=== PATIENT | male | born 1960 | race Two or more races ===

== ENCOUNTER → 2018-04-26 | Day surgery (SDC) | payer OTHER ==
[~2018-04-26] MED LIST: FLUMAZENIL 0.1 MG/ML INJ 10ML MDV IV ONE; LISI10TA6 PO; NALOXONE HCL 0.4 MG/ML VIAL ONE; SODIUM CHLORIDE LOCK 10 ML ONE; diphenhdrAMINE HCL 50 MG/1 ML VL ONE
[2018-04-26 07:46] LABS: Basophils # (auto) 0 uL; Basophils % (auto) 0.6 % (0.0-2.0); Eosinophils # (auto) 0.1 uL; Eosinophils % (auto) 1.3 % (0.0-7.0); Hematocrit 43.5 % (41.0-53.0); Hemoglobin 14.3 g/dL (13.5-17.5); Lymphocytes % (auto) 19.7 % (10.0-50.0); Mean Corpuscular Hemoglobin 28.3 pg (28.0-32.0); Mean Corpuscular Hgb Conc. 32.9 g/dL (32.0-36.0); Mean Corpuscular Volume 85.9 fL (80.0-100.0); Monocytes # (auto) 0.4 uL; Monocytes % (auto) 7.9 % (0.0-12.0); Neutrophils # (auto) 3.7 uL; Neutrophils % (auto) 70.5 % (37.0-80.0); Nucleated Red Blood Cells % 0.1 %; Platelet Count (auto) 265 10^3/uL (140-450); Red Blood Cells 5.06 10^6/uL (4.5-5.90); Red Cell Distribution Width 12.7 % (11.8-14.3); White Blood Cell 5.3 10^3/uL (4.4-10.8)
[2018-04-26 08:05] LABS: INR 1.07 (0.9-1.15); Partial Thromboplastin Time 27.1 sec (23.78-33.04); Prothrombin Time 11.4 sec (9.27-12.13)
[2018-04-26] MEDS: fentaNYL CITRATE 100 MCG/2 ML VL ONE ×2 (09:14→09:17)
[2018-04-26] MEDS: MIDAZOLAM HCL 5 MG/ML-1ML VIAL ONE ×3 (09:14→09:21)
[2018-04-26 10:01] VITALS: BP 110/72
== END | disposition home or self-care (01) ==
LOC: GI 06:20
PROVIDERS: ATTEND Internal Medicine Gastroenterology
DX: K64.8 Other hemorrhoids (principal); K63.3 Ulcer of intestine; Z91.013 Allergy to seafood; Z82.49 Family history of ischemic heart disease and other diseases of the circulatory system; Z83.3 Family history of diabetes mellitus
CPT/HCPCS: 36415; 45380; 85025; 85610; 85730; 88305; 88342; J1200; J2250; J3010; J7030; 99152

== ENCOUNTER 2018-04-28 06:25 | Inpatient (IN) | payer OTHER ==
[~2018-04-28] VITALS: Ht 182.9 cm; Wt 94.7 kg
[2018-04-28] MEDS ORDERED: MIDAZOLAM HCL 1MG/1ML-2 ML VIAL ONE (10:35)
[2018-04-28] MEDS ORDERED: ONDANSETRON HCL 4 MG/2 ML VIAL ONE (10:35)
[2018-04-28] MEDS ORDERED: SODIUM CHLORIDE LOCK 10 ML ONE (10:35)
[2018-04-28] MEDS ORDERED: fentaNYL CITRATE 100 MCG/2 ML VL ONE (10:35)
[2018-04-28] MEDS ORDERED: PROPOFOL 10 MG/ML 20 ML IV ONE (10:35)
[2018-04-28] MEDS ORDERED: LIDOCAINE 1% HCL (LOCAL ANESTH.) INJ 20ML MDV ONE (11:02)
[2018-04-28] MEDS ORDERED: BUPIVACAINE W/ EPINEPH 0.25% INJ 50ML MDV ONE (11:02)
[2018-04-28] MEDS ORDERED: LIDOCAINE HCL 2% TOP JELLY 5ML TOP ONE (11:07)
[2018-04-28] MEDS ORDERED: METOCLOPRAMIDE HCL 5MG/ml INJ 2ml VIAL IV ONE (11:15)
[2018-04-28] MEDS ORDERED: KETOROLAC TROMETH 30 MG/ML 1ML VIAL IV ONE (11:15)
[2018-04-28] MEDS ORDERED: SUCCINYLCHOLINE CHLORIDE 20 MG/ML 10ML VIAL IV ONE (11:29)
[2018-04-28] MEDS ORDERED: ROCURONIUM 10MG/ML 10ML VIAL IV ONE (11:29)
[2018-04-28] MEDS ORDERED: NEOSTIGMINE 1 MG/ML INJ (10mg/10ML VIAL) ONE (12:21)
[2018-04-28] MEDS ORDERED: KETOROLAC TROMETH 60MG/2ML VIAL IM ONE (12:21)
[2018-04-28] MEDS ORDERED: GLYCOPYRROLATE 0.2 MG/ML 1ML VIAL ONE (12:21)
[2018-04-28] MEDS ORDERED: FLUTICASONE PROP NASAL SPR 0.05 % (50MCG) 16GM EACHNOSTRI ONE (13:30)
[2018-04-28] MEDS: FLUTICASONE PROP NASAL SPR 0.05 % (50MCG) 16GM EACHNOSTRI SCH ×2 (13:40→17:52)
[2018-04-28] MEDS: HYDROmorphone HCL 2 MG/ML VL IV PRN ×6 (14:25→21:50)
[2018-04-28] MEDS ORDERED: NITROGLYCERIN 0.4 MG SL TAB SL PRN (15:15)
[2018-04-28] MEDS ORDERED: MORPHINE SULFATE 10 MG/ML INJ 1ML SDV IV PRN (15:15)
[2018-04-28] MEDS ORDERED: ZOLPIDEM TARTRATE 5 MG TAB PO PRN (15:15)
--- NOTE | 2018-04-28 15:50 | NUR ---
Med-Surg admit from [facility] admitted to Med-Surg unit after SBAR received, s/p hernia repair. Patient oriented to MILAGRO Yap RN, unit, room, bed, and unit policies regarding patient care and visiting hours. Patient placed on bedside oxygen, weighed by bed scale and encouraged to call if they need something. All questions and concerns addressed, patient verbalized understanding.
[2018-04-28 17:47] VITALS: BP 125/74
[2018-04-28] MEDS: ceFAZolin 1GM/50ML 50 ML IV SCH ×2 (17:52→21:50)
--- NOTE | 2018-04-28 19:00 | NUR ---
Closing Note Patient is resting in bed, not in distress. Call light within reach and bed in lowest position. Guard at bedside. Care endorsed to night RN.
--- NOTE | 2018-04-28 19:30 | NUR ---
RECEIVED PT FROM DAY RN POC REVIEWED
--- NOTE | 2018-04-28 20:15 | NUR ---
50ML OF SEROUS SECRETIONS OUT OF VÍCTOR DRAIN
[2018-04-28] MEDS: ONDANSETRON HCL 4 MG/2 ML VIAL IV PRN (21:51)
[2018-04-28 22:00] VITALS: BP 138/82
--- NOTE | 2018-04-28 23:37 | NUR ---
40ML OF SEROUS SECRETION OUT OF VÍCTOR
[2018-04-29] MEDS: ONDANSETRON HCL 4 MG/2 ML VIAL IV PRN (00:21)
[2018-04-29] MEDS: HYDROmorphone HCL 2 MG/ML VL IV PRN ×4 (00:22→13:27)
--- NOTE | 2018-04-29 00:32 | NUR ---
25 ML SEROUS SECRETIONS OUT OF VÍCTOR DRAIN
[2018-04-29 05:00] VITALS: BP 120/73
[2018-04-29] MEDS: ceFAZolin 1GM/50ML 50 ML IV SCH ×3 (05:29→21:33)
--- NOTE | 2018-04-29 07:20 | NUR ---
Opening Shift Note Assumed care of patient, awake and alert. No S/S of distress/SOB. Patient reported abdominal pain on the surgical site particularly when moving. Instructed on POC-continue IV antibiotic, do incentive spirometry at least 10 times every hours when awake, pain management and to ambulate. Patient informed to call for assist PRN, will continue to monitor for changes Q1hr and PRN. Guards at bedside.
[2018-04-29] MEDS ORDERED: INFLUENZA QUAD 2018-2019 0.5 ML SYRG IM ONE (07:30)
--- NOTE | 2018-04-29 07:32 | NUR ---
AWOKE PT HAS HYPO BS, PAIN RELIEVED WITH MED GIVEN, NO NEW DRAINAGE OON DRESSING, VÍCTOR OUT AT THIS TIME 20 ML SEROUS SECRETIONS, IS AT BEDSIDE, REMINDED PT TO AMBULATE, REMINDED PT TO SPLINT ABDOMEN WHEN COUGHING, ALL QUESTIONS AND CONCERNS ADDRESSED, RESP EVEN AND UNLABORED ON 2L HUMIDIFIED O2 REPORT OFF TO AM NURSE
[2018-04-29] MEDS ORDERED: LISI10TA6 PO (08:20)
[2018-04-29 09:00] VITALS: BP 111/64
[2018-04-29] MEDS: LISINOPRIL 10 MG TAB PO SCH (09:43)
[2018-04-29] MEDS: ASPirin 81 mg TAB PO SCH (09:43)
[2018-04-29] MEDS: FLUTICASONE PROP NASAL SPR 0.05 % (50MCG) 16GM EACHNOSTRI SCH (09:44)
[2018-04-29 13:00] VITALS: BP 131/74
[2018-04-29 14:19] LABS: Basophils # (auto) 0 uL; Basophils % (auto) 0.3 % (0.0-2.0); Eosinophils # (auto) 0.1 uL; Eosinophils % (auto) 1.5 % (0.0-7.0); Hematocrit 38.5 % (41.0-53.0); Hemoglobin 12.7 g/dL (13.5-17.5); Lymphocytes # (auto) 1.4 uL; Lymphocytes % (auto) 19.3 % (10.0-50.0); Mean Corpuscular Hemoglobin 28.5 pg (28.0-32.0); Mean Corpuscular Volume 86.2 fL (80.0-100.0); Monocytes # (auto) 0.8 uL; Monocytes % (auto) 10.3 % (0.0-12.0); Neutrophils % (auto) 68.6 % (37.0-80.0); Platelet Count (auto) 217 10^3/uL (140-450); Red Blood Cells 4.46 10^6/uL (4.5-5.90); Red Cell Distribution Width 13.1 % (11.8-14.3); White Blood Cell 7.3 10^3/uL (4.4-10.8)
[2018-04-29 14:40] LABS: Albumin 3.3 g/dL (3.4-5.0); Calcium 8.1 mg/dL (8.5-10.1); Potassium 3.8 mmol/L (3.5-5.1)
[2018-04-29 14:43] LABS: BUN/Creatinine Ratio 8.3; Bilirubin, Total 0.9 mg/dL (0.2-1.0); Total Protein 6.4 g/dL (6.4-8.2)
--- NOTE | 2018-04-29 15:36 | NUR ---
Page Dr. Crocker to inform of abdomen X-ray result. Spoke with staff Vidhya, who said that I should fax the result. Faxed result to Dr. Crocker office fax # [phone]. Awaiting call back. Continue to monitor patient. Abdomen is soft, positive bowel sounds and tolerating liquids.
[2018-04-29] MEDS: HYDROcodone-ACET 10/325MG TAB PO PRN ×2 (16:03→20:17)
[2018-04-29 17:41] VITALS: BP 128/85
--- NOTE | 2018-04-29 19:45 | NUR ---
Opening Shift Note Assumed care of patient, awake and alert. No S/S of distress/SOB but c/o abdominal pain 01/27. Ab binder on patient with VÍCTOR drain. IS at bedside. Bed locked in lowest position, side rails upx2, call light within reach. Guards at bedside. Instructed on POC and to call for assist PRN, will continue to monitor for changes Q1hr and PRN.
[2018-04-29 21:37] VITALS: BP 116/75
[2018-04-30] MEDS: HYDROcodone-ACET 10/325MG TAB PO PRN ×6 (00:24→23:24)
[2018-04-30 05:06] VITALS: BP 116/74
[2018-04-30] MEDS: ceFAZolin 1GM/50ML 50 ML IV SCH (05:50)
--- NOTE | 2018-04-30 06:52 | NUR ---
40ml total output from shift of serosanguinous drainage from VÍCTOR drain.
--- NOTE | 2018-04-30 07:25 | NUR ---
Opening Shift Note Assumed care of patient, awake and alert. No S/S of distress/SOB. Patient reported mild abdominal pain on the surgical site. Instructed on POC-continue to use incentive spirometer at least 10x/hour when awake, turn to sides at least every 2 hours and ambulate at least every 4 hours, pain management and continue medications as ordered. Patient informed to call for assist PRN, will continue to monitor for changes Q1hr and PRN. Guard at bedside.
[2018-04-30 09:00] VITALS: BP 126/68
[2018-04-30] MEDS: ASPirin 81 mg TAB PO SCH (10:02)
[2018-04-30] MEDS: LISINOPRIL 10 MG TAB PO SCH (10:02)
[2018-04-30] MEDS: ENOXAPARIN SOD 40 MG/0.4 ML SYRINGE SC SCH (10:03)
[2018-04-30] MEDS: FLUTICASONE PROP NASAL SPR 0.05 % (50MCG) 16GM EACHNOSTRI SCH (10:03)
[2018-04-30 13:00] VITALS: BP 106/65
[2018-04-30 17:44] VITALS: BP 104/62
--- NOTE | 2018-04-30 19:00 | NUR ---
Closing Note Patient is resting in bed, pain medication has just been administered as requested by patient. Abdominal dressing is clean, dry and intact with VÍCTOR drain, drainage over the shift was about 30 mls. Abdominal binder on the patient. Guards at bedside.
--- NOTE | 2018-04-30 19:45 | NUR ---
assumed care, pt. awake, no c/o pain, dressing on abdomen dry and intact, no sob.
[2018-04-30 22:00] VITALS: BP 122/66
[2018-05-01] MEDS: HYDROcodone-ACET 10/325MG TAB PO PRN ×4 (04:33→20:05)
[2018-05-01 05:43] VITALS: BP 122/75
--- NOTE | 2018-05-01 06:39 | NUR ---
v/s table, no c/o pain at this time, not in distress.
--- NOTE | 2018-05-01 07:40 | NUR ---
OPENING NOTE Assumed care of patient from NOC RNDahiana. Patient awake and alert with no S/S of distress/SOB or pain. Abdominal binder in place. Guard at bedside, right wrist and bilateral ankles cuffed to bed. Instructed on POC and to call for assist PRN, verbalized understanding. Bed in lowest, locked position with side rails up x 2 and call light within reach. Will continue to monitor for changes Q1hr and PRN.
[2018-05-01 09:00] VITALS: BP 128/76
[2018-05-01] MEDS: LISINOPRIL 10 MG TAB PO SCH (09:03)
[2018-05-01] MEDS: ENOXAPARIN SOD 40 MG/0.4 ML SYRINGE SC SCH (09:03)
[2018-05-01] MEDS: FLUTICASONE PROP NASAL SPR 0.05 % (50MCG) 16GM EACHNOSTRI SCH (09:03)
[2018-05-01] MEDS: ASPirin 81 mg TAB PO SCH (09:03)
[2018-05-01 13:00] VITALS: BP 110/69
[2018-05-01 17:00] VITALS: BP 124/75
--- NOTE | 2018-05-01 19:18 | NUR ---
CLOSING NOTE Endorsed care of patient to NOC Dahiana SANDERSON.
--- NOTE | 2018-05-01 19:35 | NUR ---
assumed care, pt. awake, guard at bedside, dressing on abdomen dry and intact, no sob.
[2018-05-01 22:04] VITALS: BP 108/60
[2018-05-02] MEDS: HYDROcodone-ACET 10/325MG TAB PO PRN ×2 (01:29→11:51)
[2018-05-02 04:43] VITALS: BP 118/75
--- NOTE | 2018-05-02 07:22 | NUR ---
OPENING NOTE Assumed care of patient from NOC RNDahiana. Patient awake and alert with no S/S of distress/SOB or pain. Abdominal binder in place. Guards at bedside, left wrist and bilateral ankles cuffed to bed. Instructed on POC and to call for assist PRN, verbalized understanding. Bed in lowest, locked position with side rails up x2 and call light within reach. Will continue to monitor for changes Q1hr and PRN.
--- NOTE | 2018-05-02 08:45 | NUR ---
DRESSING CHANGE Removed soiled surgical dressing. Sutures intact, no drainage or foul odor noted. Cleansed area with wound cleanser, patted dry, applied sterile 4x4 gauze and covered with adhesive, bordered gauze dressing. Patient tolerated well.
[2018-05-02 09:00] VITALS: BP 128/88
[2018-05-02] MEDS: FLUTICASONE PROP NASAL SPR 0.05 % (50MCG) 16GM EACHNOSTRI SCH (11:15)
[2018-05-02] MEDS: LISINOPRIL 10 MG TAB PO SCH (11:16)
[2018-05-02] MEDS: ASPirin 81 mg TAB PO SCH (11:16)
[2018-05-02] MEDS: ENOXAPARIN SOD 40 MG/0.4 ML SYRINGE SC SCH (11:16)
[2018-05-02] MEDS: PANTOPRAZOLE 40 MG TAB PO SCH (11:17)
--- NOTE | 2018-05-02 12:17 | NUR ---
Nutrition Assessment Notes please see attached link for complete assessment Est. Needs BW [id number] kcal (23-25 kcal/kgBW), 96-105 gms pro (1.0-1.1 gms/kgBW). Will continue to monitor pertinent labs and reassess nutrient need prn Addendum: 05/02/18 at [address] Amended: Links added.
[2018-05-02 13:00] VITALS: BP 120/81
--- NOTE | 2018-05-02 14:17 | NUR ---
PAGED Paged Dr. Crocker per patient's request for stool softener. Awaiting call back.
--- NOTE | 2018-05-02 14:23 | NUR ---
AWARE Dr. Crocker aware of patient's request, no new orders at this time.
[2018-05-02 17:00] VITALS: BP 116/80
--- NOTE | 2018-05-02 20:00 | NUR ---
assumed care, pt. awake, dressing on abdomen, dry and intact, no c/o pain at this time, no sob.
[2018-05-02 21:27] VITALS: BP 106/60
[2018-05-03 04:53] VITALS: BP 124/68
--- NOTE | 2018-05-03 07:50 | NUR ---
OPENING SHIFT NOTE ASSUMED CARE OF PATIENT. PATIENT AWAKE AND ALERT SITTING UP IN BED. GUARDS AT BEDSIDE FOR SAFETY. PATIENT SHACKLED TO BED X3 BILATERALLY TO ANKLES AND LEFT WRIST. DRESSING TO MEDIAL ABDOMEN CLEAN DRY AND INTACT, ABDOMINAL BINDER REPLACED AND NOTED MINIMAL SANGUINOUS DRAINAGE TO LEFT LOWER ABDOMINAL VÍCTOR DRAIN. REVIEWED POC WITH PATIENT AND INSTRUCTED TO CALL FOR ASSIST NEEDED. BED IN LOWEST LOCKED POSITION, CALL LIGHT WITHIN REACH. WILL CONTINUE TO MONITOR.
[2018-05-03 09:16] VITALS: BP 126/70
[2018-05-03] MEDS: FLUTICASONE PROP NASAL SPR 0.05 % (50MCG) 16GM EACHNOSTRI SCH (11:01)
[2018-05-03] MEDS: LISINOPRIL 10 MG TAB PO SCH (11:02)
[2018-05-03] MEDS: ASPirin 81 mg TAB PO SCH (11:03)
[2018-05-03] MEDS: PANTOPRAZOLE 40 MG TAB PO SCH (11:03)
[2018-05-03] MEDS: ENOXAPARIN SOD 40 MG/0.4 ML SYRINGE SC SCH (11:03)
[2018-05-03 12:57] VITALS: BP 109/72
[2018-05-03 17:00] VITALS: BP 121/64
--- NOTE | 2018-05-03 19:35 | NUR ---
ASSUMED CARE, PT. AWAKE, NO C/O PAIN, DRESSING ON ABDOMINAL AREA DRY AND INTACT, NO SOB.
[2018-05-03 22:59] VITALS: BP 133/63
[2018-05-04 05:01] VITALS: BP 111/68
--- NOTE | 2018-05-04 06:45 | NUR ---
V/S STABLE, GUARD AT BEDSIDE, NO C/O PAIN, NOT IN DISTRESS.
[2018-05-04 07:46] VITALS: BP 109/67
[2018-05-04 08:00] VITALS: BP 126/70
--- NOTE | 2018-05-04 08:00 | NUR ---
ASSESSMENT NOTE PT IS ALERT ORIENTED X4, RESTING IN BED COMFORTABLY, SELF REPOSITION NEEDED, ABLE TO VERBALIS HIS NEEDS, PT HAS MID LINE INCISION, COVERED WITH DRY CLEAN DRESSING, VÍCTOR DRAINAGE NOTED AT LEFT LOWER ABDOMEN, 10 ML OF RED FLUIDS NOTED, A METAL HAND CUFF NOTED AT LEFT WRIEST, CALL LIGHT WITHIN REACH.
[2018-05-04] MEDS: ASPirin 81 mg TAB PO SCH (09:17)
[2018-05-04] MEDS: FLUTICASONE PROP NASAL SPR 0.05 % (50MCG) 16GM EACHNOSTRI SCH (09:17)
[2018-05-04] MEDS: PANTOPRAZOLE 40 MG TAB PO SCH (09:17)
[2018-05-04] MEDS: ENOXAPARIN SOD 40 MG/0.4 ML SYRINGE SC SCH (09:17)
[2018-05-04] MEDS: LISINOPRIL 10 MG TAB PO SCH (10:00)
--- NOTE | 2018-05-04 11:52 | NUR ---
SPOKE WITH DR VASQUEZ OVER THE PHONE REGARDING PT VÍCTOR DRAINAGE, SAID THAT HE WILL BE HERE TOMORROW.
[2018-05-04 12:25] VITALS: BP 121/63
--- NOTE | 2018-05-04 13:15 | NUR ---
DR GOLDEN IS HERE WITH DISCHARGE ORDERS, MADE AWARE THAT DR BERNARD WILL COME TOMORROW TO REMOVE THE VÍCTOR DRAINAGE, DR GOLDEN SAID PT STILL CAN GO BACK TO [facility], AND THE DOCTOR OVER THERE WILL REMOVE THE VÍCTOR DRAINAGE.
[2018-05-04 13:20] VITALS: BP 126/70
--- NOTE | 2018-05-04 14:40 | NUR ---
ALL DISCHARGE INSTRUCTION GIVEN TO PT, VERBALIS UNDERSTANDING. PT GUARDS AWARE AT BED SIDE.
--- NOTE | 2018-05-04 17:00 | NUR ---
PT LEFT WITH THE GUARDS BY A WHEEL CHAIR, STABLE, NO DISTRESS NOTED, PAIN 0/10 AT THIS TIME, VÍCTOR DRAINGE OUTPUT WAS ZERO AT THAT TIME.
== END 2018-05-04 17:00 | DRG 354 ==
LOC: EEVIPCON 06:25 → SUR 06:25 → EAST 16:17
PROVIDERS: ADMIT Surgery; ATTEND Internal Medicine
PROC: 0WQF0ZZ Repair Abdominal Wall, Open Approach (ICD-10-PCS; principal; 2018-04-28 13:15)
DX: K43.0 Incisional hernia with obstruction, without gangrene (principal); K56.7 Ileus, unspecified; K63.89 Other specified diseases of intestine; I10 Essential (primary) hypertension; Z79.899 Other long term (current) drug therapy
CPT/HCPCS: 36415; 74018; 80053; 85025; G0378; J0330; J0690; J1885; J2001; J2250; J2405; J2704